=== PATIENT | male | born 1980 | race Caucasian/White ===

== ENCOUNTER 2019-05-14 19:37 | Inpatient (IN) ==
[2019-05-14] MEDS ORDERED: diazePAM 10 MG/2 ML SYRINGE IVP STA (19:43)
[2019-05-14] MEDS ORDERED: Pantoprazole 40 MG VIAL IVP ONE (19:44)
[2019-05-14] MEDS ORDERED: 0.9 % Sodium Chloride 1,000 ML IVC ONE (19:44)
[2019-05-14 20:26] LABS: Basophils % 0.2 %; Eosinophils % 0.5 %; Hematocrit 43.1 % (37.5-50.1); Hemoglobin 14.7 g/dL (12.9-16.9); Immature Granulocytes % 0.5 % (0-4); Lymphocytes # 1.5 K/mcL (0.6-4.6); Lymphocytes % 34.8 %; Mean Corpuscular HGB Conc 34.1 g/dL (31.6-35.5); Mean Corpuscular Hemoglobin 31.3 pg (28.0-33.3); Mean Corpuscular Volume 91.7 fL (83.0-100.0); Mean Platelet Volume 9.3 fL (9.4-12.4); Monocytes # 0.4 K/mcL (0.0-1.3); Monocytes % 8.4 %; Neutrophils # 2.5 K/mcL (1.6-8.9); Platelet Count 158 K/mcL (140-400); Segmented Neutrophils % 55.6 %; White Blood Count 4.4 K/mcL (4.3-11.1)
[2019-05-14] MEDS ORDERED: Naloxone 0.4 MG/ML INJ IVP PRN (21:03)
[2019-05-14] MEDS ORDERED: Ondansetron 4 MG/2 ML VIAL IVP PRN (21:03)
[2019-05-14] MEDS ORDERED: *HR* LORazepam 2 MG/ML VIAL IVP PRN (21:35)
[2019-05-14] MEDS ORDERED: Thiamine (B-1) 100 MG, Folic Acid 1 MG, MVI, adult with vitamin K 10 ML in 0.9 % Sodi... IVPB SCH (21:36)
[2019-05-14] MEDS: *HR* LORazepam 2 MG/ML VIAL IVP PRN ×2 (22:03→23:08)
[2019-05-15 02:09] LABS: Basophils % 0.7 %; Eosinophils % 0.7 %; Hematocrit 40.9 % (37.5-50.1); Hemoglobin 14.2 g/dL (12.9-16.9); Immature Granulocytes % 0.5 % (0-4); Immature Platelets 2.1 % (1.1-6.1); Lymphocytes # 1.6 K/mcL (0.6-4.6); Lymphocytes % 37.9 %; Mean Corpuscular HGB Conc 34.7 g/dL (31.6-35.5); Mean Corpuscular Volume 92.1 fL (83.0-100.0); Mean Platelet Volume 9.5 fL (9.4-12.4); Monocytes # 0.3 K/mcL (0.0-1.3); Monocytes % 8.3 %; Neutrophils # 2.1 K/mcL (1.6-8.9); Platelet Count 151 K/mcL (140-400); Red Blood Count 4.44 M/mcL (4.19-5.50); Red Cell Distribution Width 15.1 % (11.5-14.5); Segmented Neutrophils % 51.9 %; White Blood Count 4.1 K/mcL (4.3-11.1)
[2019-05-15] MEDS: *HR* LORazepam 2 MG/ML VIAL IVP PRN ×8 (02:13→21:40)
[2019-05-15 03:58] LABS: BUN/Creatinine Ratio 9 (6-26); Blood Urea Nitrogen 10 mg/dL (6-20); Carbon Dioxide 22 mEq/L (23-29); Chloride 106 mEq/L (98-107); Glucose 97 mg/dL (70-105); Magnesium 1.8 mg/dL (1.6-2.6); Osmolality,Calculated 287 (280-300); Potassium 3.6 mEq/L (3.5-5.1); Sodium 139 mEq/L (136-145); eGFR For African Americans > 60 (> 60); eGFR For Non-African Americans > 60 (> 60)
[2019-05-15] MEDS: Pantoprazole 40 MG VIAL IVP SCH ×2 (06:10→17:16)
[2019-05-15 07:19] LABS: Hematocrit 42.4 % (37.5-50.1); Hemoglobin 14.4 g/dL (12.9-16.9)
[2019-05-15] MEDS: *HR* LORazepam 0.5 MG TABLET PO SCH ×4 (07:31→20:04)
[2019-05-15] MEDS: Folic Acid 1 MG TABLET PO SCH (07:32)
[2019-05-15] MEDS: Vitamin B Complex/Vit C/Vit E 1 EACH TABLET PO SCH (07:32)
[2019-05-15] MEDS: Thiamine (B-1) 100 MG TABLET PO SCH (07:32)
[2019-05-15] MEDS ORDERED: Celecoxib 200 MG CAPSULE PO SCH (09:00)
[2019-05-15] MEDS ORDERED: 0.9 % Sodium Chloride 1,000 ML IVC SCH (10:30)
[2019-05-15 16:35] LABS: Albumin/Globulin Ratio 1.5 (1.1-2.2); Bilirubin,Direct 0.3 mg/dL (0.0-0.2); Bilirubin,Indirect 0.9 mg/dL (0.0-1.0); Bilirubin,Total 1.2 mg/dL (0.3-1.0); Globulin 2.6 g/dL (2.4-3.5); Total Protein 6.6 g/dL (6.4-8.9)
[2019-05-15] MEDS ORDERED: *HR* Metoprolol 5 MG/5 ML VIAL IVP ONE (22:08)
[2019-05-16] MEDS: Acetaminophen 325 MG TABLET PO PRN
[2019-05-16] MEDS: *HR* LORazepam 2 MG/ML VIAL IVP PRN ×6 (00:01→22:18)
[2019-05-16] MEDS: 0.9 % Sodium Chloride 1,000 ML IVC SCH ×3 (01:08→16:32)
[2019-05-16 05:11] LABS: Basophils % 0.5 %; Eosinophils # 0.1 K/mcL (0.0-0.6); Eosinophils % 1.4 %; Hematocrit 41.9 % (37.5-50.1); Hemoglobin 14.3 g/dL (12.9-16.9); Immature Granulocytes % 0.2 % (0-4); Lymphocytes # 1.4 K/mcL (0.6-4.6); Lymphocytes % 31.8 %; Mean Corpuscular HGB Conc 34.1 g/dL (31.6-35.5); Mean Corpuscular Hemoglobin 32.1 pg (28.0-33.3); Mean Corpuscular Volume 93.9 fL (83.0-100.0); Mean Platelet Volume 9.4 fL (9.4-12.4); Monocytes # 0.4 K/mcL (0.0-1.3); Monocytes % 8.5 %; Neutrophils # 2.5 K/mcL (1.6-8.9); Platelet Count 129 K/mcL (140-400); Red Blood Count 4.46 M/mcL (4.19-5.50); Red Cell Distribution Width 15.2 % (11.5-14.5); Segmented Neutrophils % 57.6 %; White Blood Count 4.3 K/mcL (4.3-11.1)
[2019-05-16 05:30] LABS: BUN/Creatinine Ratio 10 (6-26); Blood Urea Nitrogen 11 mg/dL (6-20); Calcium 8.1 mg/dL (8.6-10.3); Carbon Dioxide 23 mEq/L (23-29); Chloride 108 mEq/L (98-107); Glucose 102 mg/dL (70-105); Osmolality,Calculated 286 (280-300); Potassium 3.3 mEq/L (3.5-5.1); Sodium 138 mEq/L (136-145); eGFR For African Americans > 60 (> 60); eGFR For Non-African Americans > 60 (> 60)
[2019-05-16] MEDS: Pantoprazole 40 MG VIAL IVP SCH (06:12)
[2019-05-16] MEDS: *HR* LORazepam 0.5 MG TABLET PO SCH ×2 (07:52→11:26)
[2019-05-16] MEDS: Vitamin B Complex/Vit C/Vit E 1 EACH TABLET PO SCH (07:52)
[2019-05-16] MEDS: Folic Acid 1 MG TABLET PO SCH (07:52)
[2019-05-16] MEDS: Thiamine (B-1) 100 MG TABLET PO SCH (07:52)
[2019-05-16] MEDS: lisinopriL 20 MG TABLET PO SCH (07:53)
[2019-05-16] MEDS: Cholecalciferol (D-3) 1,000 UNIT (25MCG) TABLET PO SCH (08:43)
[2019-05-16] MEDS: cloNIDine HCL 0.1 MG TABLET PO SCH (08:43)
[2019-05-16] MEDS: hydrOXYzine pamoate 25 MG CAPSULE PO PRN ×2 (09:06→14:00)
[2019-05-16] MEDS: traZODone 50 MG TABLET PO SCH (22:20)
[2019-05-17 06:59] LABS: Hematocrit 42.7 % (37.5-50.1); Hemoglobin 14.4 g/dL (12.9-16.9)
[2019-05-17 07:07] LABS: BUN/Creatinine Ratio 13 (6-26); Blood Urea Nitrogen 13 mg/dL (6-20); Calcium 8.2 mg/dL (8.6-10.3); Carbon Dioxide 20 mEq/L (23-29); Chloride 107 mEq/L (98-107); Glucose 88 mg/dL (70-105); Osmolality,Calculated 290 (280-300); Potassium 3.4 mEq/L (3.5-5.1); Sodium 140 mEq/L (136-145); eGFR For African Americans > 60 (> 60); eGFR For Non-African Americans > 60 (> 60)
[2019-05-17] MEDS: Thiamine (B-1) 100 MG TABLET PO SCH (08:24)
[2019-05-17] MEDS: Cholecalciferol (D-3) 1,000 UNIT (25MCG) TABLET PO SCH (08:24)
[2019-05-17] MEDS: lisinopriL 20 MG TABLET PO SCH (08:24)
[2019-05-17] MEDS: Folic Acid 1 MG TABLET PO SCH (08:24)
[2019-05-17] MEDS: Vitamin B Complex/Vit C/Vit E 1 EACH TABLET PO SCH (08:24)
[2019-05-17] MEDS: cloNIDine HCL 0.1 MG TABLET PO SCH (08:24)
[2019-05-17] MEDS: *HR* LORazepam 2 MG/ML VIAL IVP PRN ×3 (08:25→21:56)
[2019-05-17] MEDS: 0.9 % Sodium Chloride 1,000 ML IVC SCH (14:17)
[2019-05-17] MEDS: traZODone 50 MG TABLET PO SCH (21:29)
[2019-05-18 05:02] LABS: BUN/Creatinine Ratio 16 (6-26); Blood Urea Nitrogen 16 mg/dL (6-20); Calcium 8.4 mg/dL (8.6-10.3); Carbon Dioxide 22 mEq/L (23-29); Chloride 108 mEq/L (98-107); Glucose 100 mg/dL (70-105); Osmolality,Calculated 285 (280-300); Potassium 3.7 mEq/L (3.5-5.1); Sodium 137 mEq/L (136-145); eGFR For African Americans > 60 (> 60); eGFR For Non-African Americans > 60 (> 60)
[2019-05-18] MEDS: *HR* LORazepam 2 MG/ML VIAL IVP PRN ×2 (05:13→20:48)
[2019-05-18] MEDS: Cholecalciferol (D-3) 1,000 UNIT (25MCG) TABLET PO SCH (09:35)
[2019-05-18] MEDS: Folic Acid 1 MG TABLET PO SCH (09:35)
[2019-05-18] MEDS: cloNIDine HCL 0.1 MG TABLET PO SCH (09:35)
[2019-05-18] MEDS: lisinopriL 20 MG TABLET PO SCH (09:35)
[2019-05-18] MEDS: Vitamin B Complex/Vit C/Vit E 1 EACH TABLET PO SCH (09:35)
[2019-05-18] MEDS: Thiamine (B-1) 100 MG TABLET PO SCH (09:35)
[2019-05-18] MEDS: traZODone 50 MG TABLET PO SCH (20:47)
[2019-05-19] MEDS: hydrOXYzine pamoate 25 MG CAPSULE PO PRN (06:25)
[2019-05-19] MEDS: cloNIDine HCL 0.1 MG TABLET PO SCH (08:53)
[2019-05-19] MEDS: Folic Acid 1 MG TABLET PO SCH (08:53)
[2019-05-19] MEDS: lisinopriL 20 MG TABLET PO SCH (08:53)
[2019-05-19] MEDS: Thiamine (B-1) 100 MG TABLET PO SCH (08:53)
[2019-05-19] MEDS: Vitamin B Complex/Vit C/Vit E 1 EACH TABLET PO SCH (08:53)
[2019-05-19] MEDS: Cholecalciferol (D-3) 1,000 UNIT (25MCG) TABLET PO SCH (08:54)
[2019-05-19] MEDS: *HR* LORazepam 2 MG/ML VIAL IVP PRN ×5 (09:02→20:55)
[2019-05-19] MEDS: Acetaminophen 325 MG TABLET PO PRN (10:17)
[2019-05-19] MEDS: traZODone 50 MG TABLET PO SCH (20:55)
[2019-05-20] MEDS: Thiamine (B-1) 100 MG TABLET PO SCH (10:22)
[2019-05-20] MEDS: cloNIDine HCL 0.1 MG TABLET PO SCH (10:24)
[2019-05-20] MEDS: Folic Acid 1 MG TABLET PO SCH (10:24)
[2019-05-20] MEDS: lisinopriL 20 MG TABLET PO SCH (10:24)
[2019-05-20] MEDS: Vitamin B Complex/Vit C/Vit E 1 EACH TABLET PO SCH (10:24)
[2019-05-20] MEDS: Cholecalciferol (D-3) 1,000 UNIT (25MCG) TABLET PO SCH (10:24)
[2019-05-20] MEDS: *HR* LORazepam 2 MG/ML VIAL IVP PRN ×3 (10:35→20:48)
[2019-05-20] MEDS: traZODone 50 MG TABLET PO SCH (20:47)
[2019-05-21 04:19] LABS: Hematocrit 43.3 % (37.5-50.1); Hemoglobin 14.1 g/dL (12.9-16.9)
[2019-05-21 04:35] LABS: BUN/Creatinine Ratio 17 (6-26); Blood Urea Nitrogen 17 mg/dL (6-20); Calcium 8.4 mg/dL (8.6-10.3); Carbon Dioxide 26 mEq/L (23-29); Chloride 107 mEq/L (98-107); Glucose 102 mg/dL (70-105); Osmolality,Calculated 290 (280-300); Potassium 3.4 mEq/L (3.5-5.1); Sodium 139 mEq/L (136-145); eGFR For African Americans > 60 (> 60); eGFR For Non-African Americans > 60 (> 60)
[2019-05-21] MEDS: Thiamine (B-1) 100 MG TABLET PO SCH (08:20)
[2019-05-21] MEDS: lisinopriL 20 MG TABLET PO SCH (08:20)
[2019-05-21] MEDS: cloNIDine HCL 0.1 MG TABLET PO SCH (08:20)
[2019-05-21] MEDS: Vitamin B Complex/Vit C/Vit E 1 EACH TABLET PO SCH (08:20)
[2019-05-21] MEDS: Folic Acid 1 MG TABLET PO SCH (08:21)
[2019-05-21] MEDS: Cholecalciferol (D-3) 1,000 UNIT (25MCG) TABLET PO SCH (08:21)
[2019-05-21] MEDS: *HR* LORazepam 2 MG/ML VIAL IVP PRN ×3 (12:50→22:35)
[2019-05-21] MEDS ORDERED: Nicotine 2 MG GUM BC PRN (14:02)
[2019-05-21] MEDS: Acetaminophen 325 MG TABLET PO PRN (16:14)
[2019-05-21] MEDS: traZODone 50 MG TABLET PO SCH (21:54)
[2019-05-22 07:02] VITALS: BP 122/79
[2019-05-22] MEDS: lisinopriL 20 MG TABLET PO SCH (09:53)
[2019-05-22] MEDS: Vitamin B Complex/Vit C/Vit E 1 EACH TABLET PO SCH (09:53)
[2019-05-22] MEDS: cloNIDine HCL 0.1 MG TABLET PO SCH (09:53)
[2019-05-22] MEDS: Folic Acid 1 MG TABLET PO SCH (09:53)
[2019-05-22] MEDS: Cholecalciferol (D-3) 1,000 UNIT (25MCG) TABLET PO SCH (09:53)
[2019-05-22] MEDS: Thiamine (B-1) 100 MG TABLET PO SCH (09:53)
== END 2019-05-22 14:06 | disposition home or self-care (01) | DRG 378 ==
LOC: EMEROOARM 19:37 → 3ANU 19:37 → SUATTDRO 20:31 → 3ANU 20:57
PROVIDERS: ADMIT Pharmacist; ATTEND Family Medicine
PROC: ENDOEBX (2019-05-15 13:30)

== ENCOUNTER 2019-09-26 21:25 | Inpatient (IN) ==
[2019-09-26] MEDS ORDERED: Isovue-370 500 ML BOTTLE IVP ONE (21:45)
[2019-09-26] MEDS ORDERED: 0.9 % Sodium Chloride 1,000 ML IV ONE (21:49)
[2019-09-26 21:59] LABS: Hematocrit 46.2 % (37.5-50.1); Hemoglobin 15.7 g/dL (12.9-16.9); Mean Corpuscular Hemoglobin 32.6 pg (28.0-33.3); Mean Corpuscular Volume 95.9 fL (83.0-100.0); Mean Platelet Volume 9.5 fL (9.4-12.4); Platelet Count 169 K/mcL (140-400); Red Blood Count 4.82 M/mcL (4.19-5.50); Red Cell Distribution Width 16.3 % (11.5-14.5); White Blood Count 4.2 K/mcL (4.3-11.1)
[2019-09-26 22:01] LABS: Prothrombin Time 11.1 Seconds (9.4-12.1)
[2019-09-26 22:03] LABS: Activated Partial Thrombo Time 34.5 Seconds (26.0-36.0)
[2019-09-26] MEDS ORDERED: *HR* LORazepam 2 MG/ML VIAL IVP ONE (22:12)
[2019-09-26] MEDS ORDERED: Pantoprazole 40 MG VIAL IVP ONE (22:13)
[2019-09-26 22:14] LABS: Alanine Aminotransferase 226 Units/L (7-52); Albumin 4.5 g/dL (3.5-5.7); Albumin/Globulin Ratio 1.7 (1.1-2.2); Alkaline Phosphatase 122 Units/L (34-104); Aspartate Amino Transferase 257 Units/L (13-39); BUN/Creatinine Ratio 5 (6-26); Bilirubin,Direct 0.8 mg/dL (0.0-0.2); Bilirubin,Indirect 0.9 mg/dL (0.0-1.0); Bilirubin,Total 1.7 mg/dL (0.3-1.0); Blood Urea Nitrogen 4 mg/dL (6-20); Calcium 8.6 mg/dL (8.6-10.3); Carbon Dioxide 22 mEq/L (23-29); Chloride 92 mEq/L (98-107); Ethanol 374 mg/dL (Less than 10); Globulin 2.7 g/dL (2.4-3.5); Glucose 97 mg/dL (70-105); Lipase 80 Units/L (11-82); Osmolality,Calculated 275 (280-300); Potassium 3.6 mEq/L (3.5-5.1); Sodium 134 mEq/L (136-145); Total Protein 7.2 g/dL (6.4-8.9); eGFR For African Americans > 60 (> 60); eGFR For Non-African Americans > 60 (> 60)
[2019-09-26 22:15] LABS: Troponin I < 0.03 ng/mL (< 0.04)
[2019-09-27] MEDS ORDERED: *HR* LORazepam 2 MG/ML VIAL IVP ONE (00:03)
[2019-09-27] MEDS ORDERED: *HR* LORazepam 2 MG/ML VIAL IVP PRN ×2 (02:52)
[2019-09-27] MEDS ORDERED: Naloxone 0.4 MG/ML INJ IVP PRN (04:52)
[2019-09-27] MEDS ORDERED: Perflutren Lipid Microsphere 1.3 ML in 0.9 % Sodium Chloride 8.7 ML IVP PRN (04:52)
[2019-09-27] MEDS: Thiamine (B-1) 100 MG, Folic Acid 1 MG, MVI, adult with vitamin K 10 ML in 0.9 % Sodi... IVPB SCH (04:56)
[2019-09-27] MEDS: *HR* LORazepam 2 MG/ML VIAL IVP PRN ×4 (05:39→21:22)
[2019-09-27] MEDS: Pantoprazole 40 MG VIAL IVP SCH ×2 (05:39→18:54)
[2019-09-27 06:02] LABS: Basophils % 0.6 %; Hematocrit 44.4 % (37.5-50.1); Hemoglobin 15.2 g/dL (12.9-16.9); Immature Granulocytes % 0.6 % (0-4); Mean Corpuscular HGB Conc 34.2 g/dL (31.6-35.5); Mean Corpuscular Volume 96.5 fL (83.0-100.0); Mean Platelet Volume 9.5 fL (9.4-12.4); Monocytes # 0.3 K/mcL (0.0-1.3); Monocytes % 9.3 %; Platelet Count 144 K/mcL (140-400); Red Cell Distribution Width 16.4 % (11.5-14.5); Segmented Neutrophils % 58.5 %; White Blood Count 3.4 K/mcL (4.3-11.1)
[2019-09-27 06:18] LABS: Alanine Aminotransferase 196 Units/L (7-52); Albumin 4.4 g/dL (3.5-5.7); Albumin/Globulin Ratio 1.9 (1.1-2.2); Alkaline Phosphatase 116 Units/L (34-104); Aspartate Amino Transferase 194 Units/L (13-39); BUN/Creatinine Ratio 5 (6-26); Bilirubin,Total 1.5 mg/dL (0.3-1.0); Blood Urea Nitrogen 4 mg/dL (6-20); Calcium 8.6 mg/dL (8.6-10.3); Carbon Dioxide 23 mEq/L (23-29); Chloride 95 mEq/L (98-107); Chol/HDL Ratio 2.3 (0-4.9); Cholesterol 310 mg/dL (< 200); Globulin 2.3 g/dL (2.4-3.5); Glucose 67 mg/dL (70-105); HDL Cholesterol 133 mg/dL (40-59); LDL Cholesterol,Calculated 163 mg/dL (< 100); Osmolality,Calculated 277 (280-300); Potassium 3.9 mEq/L (3.5-5.1); Sodium 136 mEq/L (136-145); Total Protein 6.7 g/dL (6.4-8.9); Triglycerides 69 mg/dL (< 150); eGFR For African Americans > 60 (> 60); eGFR For Non-African Americans > 60 (> 60)
[2019-09-27] MEDS ORDERED: NON-FORMULARY MEDICATION 1 EACH EACH (Omeprazole 40 MG) PO SCH (09:00)
[2019-09-27] MEDS: Cholecalciferol (D-3) 1,000 UNIT (25MCG) TABLET PO SCH (09:06)
[2019-09-27] MEDS: lisinopriL 20 MG TABLET PO SCH (09:06)
[2019-09-27] MEDS: FLUoxetine 20 MG CAPSULE PO SCH (09:06)
[2019-09-27 11:28] LABS: Estimated Average Glucose 100 mg/dl
[2019-09-27] MEDS: Ondansetron ODT 4 MG TAB.RAPDIS SL PRN (16:30)
[2019-09-27] MEDS: *HR* Heparin 5,000 UNIT/ML VIAL SQ SCH (18:54)
[2019-09-27] MEDS: traZODone 50 MG TABLET PO SCH (21:22)
[2019-09-28] MEDS: *HR* LORazepam 2 MG/ML VIAL IVP PRN ×5 (01:33→20:38)
[2019-09-28] MEDS: *HR* Heparin 5,000 UNIT/ML VIAL SQ SCH ×2 (05:10→16:30)
[2019-09-28] MEDS: Pantoprazole 40 MG VIAL IVP SCH ×2 (05:26→16:30)
[2019-09-28 05:39] LABS: Hematocrit 42.4 % (37.5-50.1); Hemoglobin 14.3 g/dL (12.9-16.9); Mean Corpuscular HGB Conc 33.7 g/dL (31.6-35.5); Mean Corpuscular Hemoglobin 33.3 pg (28.0-33.3); Mean Corpuscular Volume 98.8 fL (83.0-100.0); Mean Platelet Volume 10.7 fL (9.4-12.4); Red Blood Count 4.29 M/mcL (4.19-5.50); Red Cell Distribution Width 16.2 % (11.5-14.5); White Blood Count 3.1 K/mcL (4.3-11.1)
[2019-09-28 05:45] LABS: Platelet Count 95 K/mcL (140-400)
[2019-09-28 05:54] LABS: Alanine Aminotransferase 233 Units/L (7-52); Albumin 3.9 g/dL (3.5-5.7); Albumin/Globulin Ratio 1.9 (1.1-2.2); Alkaline Phosphatase 97 Units/L (34-104); Aspartate Amino Transferase 317 Units/L (13-39); BUN/Creatinine Ratio 17 (6-26); Bilirubin,Total 2.3 mg/dL (0.3-1.0); Blood Urea Nitrogen 16 mg/dL (6-20); Calcium 8.7 mg/dL (8.6-10.3); Carbon Dioxide 25 mEq/L (23-29); Chloride 98 mEq/L (98-107); Globulin 2.1 g/dL (2.4-3.5); Glucose 119 mg/dL (70-105); Osmolality,Calculated 280 (280-300); Potassium 3.6 mEq/L (3.5-5.1); Sodium 134 mEq/L (136-145); eGFR For African Americans > 60 (> 60); eGFR For Non-African Americans > 60 (> 60)
[2019-09-28] MEDS: FLUoxetine 20 MG CAPSULE PO SCH (08:46)
[2019-09-28] MEDS: lisinopriL 20 MG TABLET PO SCH (08:46)
[2019-09-28] MEDS: Cholecalciferol (D-3) 1,000 UNIT (25MCG) TABLET PO SCH (08:46)
[2019-09-28] MEDS: Thiamine (B-1) 100 MG, Folic Acid 1 MG, MVI, adult with vitamin K 10 ML in 0.9 % Sodi... IVPB SCH (16:31)
[2019-09-28] MEDS: traZODone 50 MG TABLET PO SCH (20:37)
[2019-09-28] MEDS: Ondansetron ODT 4 MG TAB.RAPDIS SL PRN (21:02)
[2019-09-29] MEDS: *HR* LORazepam 2 MG/ML VIAL IVP PRN ×2 (00:43→04:37)
[2019-09-29] MEDS: Pantoprazole 40 MG VIAL IVP SCH (04:35)
[2019-09-29] MEDS: *HR* Heparin 5,000 UNIT/ML VIAL SQ SCH (04:45)
[2019-09-29 06:37] VITALS: BP 101/68
[2019-09-29 07:41] LABS: Hematocrit 41.1 % (37.5-50.1); Hemoglobin 13.9 g/dL (12.9-16.9); Mean Corpuscular HGB Conc 33.8 g/dL (31.6-35.5); Mean Corpuscular Hemoglobin 32.7 pg (28.0-33.3); Mean Corpuscular Volume 96.7 fL (83.0-100.0); Mean Platelet Volume 10.2 fL (9.4-12.4); Platelet Count 102 K/mcL (140-400); Red Blood Count 4.25 M/mcL (4.19-5.50); Red Cell Distribution Width 15.8 % (11.5-14.5); White Blood Count 2.2 K/mcL (4.3-11.1)
[2019-09-29 07:47] LABS: Alanine Aminotransferase 338 Units/L (7-52); Albumin 3.8 g/dL (3.5-5.7); Albumin/Globulin Ratio 1.9 (1.1-2.2); Alkaline Phosphatase 98 Units/L (34-104); Aspartate Amino Transferase 391 Units/L (13-39); BUN/Creatinine Ratio 12 (6-26); Bilirubin,Total 3.2 mg/dL (0.3-1.0); Blood Urea Nitrogen 12 mg/dL (6-20); Carbon Dioxide 24 mEq/L (23-29); Chloride 100 mEq/L (98-107); Glucose 144 mg/dL (70-105); Osmolality,Calculated 280 (280-300); Potassium 3.4 mEq/L (3.5-5.1); Sodium 134 mEq/L (136-145); Total Protein 5.8 g/dL (6.4-8.9); eGFR For African Americans > 60 (> 60); eGFR For Non-African Americans > 60 (> 60)
[2019-09-29] MEDS: FLUoxetine 20 MG CAPSULE PO SCH (08:28)
[2019-09-29] MEDS: Cholecalciferol (D-3) 1,000 UNIT (25MCG) TABLET PO SCH (08:28)
[2019-09-29] MEDS: lisinopriL 20 MG TABLET PO SCH (08:28)
== END 2019-09-29 09:46 | disposition home or self-care (01) | DRG 897 ==
LOC: EMEROOARM 21:25 → 3BNU 21:25
PROVIDERS: ADMIT Family Medicine; ATTEND Family Medicine

== ENCOUNTER 2019-11-01 20:49 | Inpatient (IN) ==
[2019-11-01] MEDS ORDERED: Aspirin 81 MG TAB.CHEW PO STA (21:35)
[2019-11-01] MEDS ORDERED: Nitroglycerin 0.4 MG TAB.SUBL SL PRN (21:36)
[2019-11-01 21:58] LABS: Basophils % 0.8 %; Hematocrit 41.6 % (37.5-50.1); Hemoglobin 14.5 g/dL (12.9-16.9); Immature Granulocytes % 0.5 % (0-4); Lymphocytes # 0.7 K/mcL (0.6-4.6); Lymphocytes % 20.3 %; Mean Corpuscular HGB Conc 34.9 g/dL (31.6-35.5); Mean Corpuscular Hemoglobin 34.4 pg (28.0-33.3); Mean Corpuscular Volume 98.8 fL (83.0-100.0); Mean Platelet Volume 10.2 fL (9.4-12.4); Monocytes # 0.4 K/mcL (0.0-1.3); Monocytes % 9.9 %; Neutrophils # 2.5 K/mcL (1.6-8.9); Platelet Count 138 K/mcL (140-400); Red Blood Count 4.21 M/mcL (4.19-5.50); Red Cell Distribution Width 14.6 % (11.5-14.5); Segmented Neutrophils % 68.5 %; White Blood Count 3.6 K/mcL (4.3-11.1)
[2019-11-01] MEDS: *HR* LORazepam 2 MG/ML VIAL IVP PRN ×2 (21:58→23:57)
[2019-11-01 22:42] LABS: Alanine Aminotransferase 167 Units/L (7-52); Albumin 4.1 g/dL (3.5-5.7); Albumin/Globulin Ratio 1.6 (1.1-2.2); Alkaline Phosphatase 233 Units/L (34-104); Aspartate Amino Transferase 262 Units/L (13-39); BUN/Creatinine Ratio 4 (6-26); Bilirubin,Direct 3.1 mg/dL (0.0-0.2); Bilirubin,Indirect 2.2 mg/dL (0.0-1.0); Bilirubin,Total 5.3 mg/dL (0.3-1.0); Blood Urea Nitrogen 3 mg/dL (6-20); Calcium 9.2 mg/dL (8.6-10.3); Carbon Dioxide 20 mEq/L (23-29); Chloride 92 mEq/L (98-107); Globulin 2.6 g/dL (2.4-3.5); Glucose 101 mg/dL (70-105); Osmolality,Calculated 267 (280-300); Potassium 3.4 mEq/L (3.5-5.1); Sodium 130 mEq/L (136-145); Total Protein 6.7 g/dL (6.4-8.9); eGFR For African Americans > 60 (> 60); eGFR For Non-African Americans > 60 (> 60)
[2019-11-01 22:52] LABS: Troponin I < 0.03 ng/mL (< 0.04)
[2019-11-01] MEDS: Vitamin B Complex/Vit C/Vit E 1 EACH TABLET PO SCH (23:51)
[2019-11-01] MEDS: Folic Acid 1 MG TABLET PO SCH (23:52)
[2019-11-01] MEDS: Thiamine (B-1) 100 MG TABLET PO SCH (23:52)
[2019-11-02] MEDS ORDERED: 0.9 % Sodium Chloride 1,000 ML IVC SCH (00:15)
[2019-11-02] MEDS: *HR* LORazepam 2 MG/ML VIAL IVP PRN ×5 (01:26→23:53)
[2019-11-02] MEDS ORDERED: *HR* Labetalol 20 MG/4 ML SYRINGE IVP ONE (02:22)
[2019-11-02] MEDS: Dexmedetomidine HCl 400 MCG/100 ML MLS IVC SCH ×2 (03:15→08:09)
[2019-11-02 05:26] LABS: Hematocrit 41.7 % (37.5-50.1); Hemoglobin 14.2 g/dL (12.9-16.9); Mean Corpuscular HGB Conc 34.1 g/dL (31.6-35.5); Mean Corpuscular Hemoglobin 34.3 pg (28.0-33.3); Mean Corpuscular Volume 100.7 fL (83.0-100.0); Mean Platelet Volume 10.8 fL (9.4-12.4); Platelet Count 146 K/mcL (140-400); Red Blood Count 4.14 M/mcL (4.19-5.50); Red Cell Distribution Width 14.6 % (11.5-14.5); White Blood Count 3.6 K/mcL (4.3-11.1)
[2019-11-02 05:32] LABS: INR 1.1; Prothrombin Time 12.4 Seconds (9.4-12.1)
[2019-11-02 05:48] LABS: Alanine Aminotransferase 154 Units/L (7-52); Albumin/Globulin Ratio 1.6 (1.1-2.2); Alkaline Phosphatase 235 Units/L (34-104); Aspartate Amino Transferase 237 Units/L (13-39); BUN/Creatinine Ratio 7 (6-26); Bilirubin,Total 5.9 mg/dL (0.3-1.0); Blood Urea Nitrogen 7 mg/dL (6-20); Calcium 9.6 mg/dL (8.6-10.3); Carbon Dioxide 25 mEq/L (23-29); Chloride 92 mEq/L (98-107); Globulin 2.5 g/dL (2.4-3.5); Glucose 119 mg/dL (70-105); Osmolality,Calculated 269 (280-300); Potassium 3.6 mEq/L (3.5-5.1); Sodium 130 mEq/L (136-145); Total Protein 6.5 g/dL (6.4-8.9); eGFR For African Americans > 60 (> 60); eGFR For Non-African Americans > 60 (> 60)
[2019-11-02] MEDS: Thiamine (B-1) 100 MG TABLET PO SCH (08:14)
[2019-11-02] MEDS: Folic Acid 1 MG TABLET PO SCH (08:14)
[2019-11-02] MEDS: Vitamin B Complex/Vit C/Vit E 1 EACH TABLET PO SCH (08:14)
[2019-11-02 09:07] LABS: BUN/Creatinine Ratio 7 (6-26); Blood Urea Nitrogen 8 mg/dL (6-20); Calcium 9.5 mg/dL (8.6-10.3); Carbon Dioxide 25 mEq/L (23-29); Chloride 93 mEq/L (98-107); Glucose 127 mg/dL (70-105); Osmolality,Calculated 272 (280-300); Potassium 3.3 mEq/L (3.5-5.1); Sodium 131 mEq/L (136-145); eGFR For African Americans > 60 (> 60); eGFR For Non-African Americans > 60 (> 60)
[2019-11-02] MEDS: Thiamine (B-1) 100 MG, Folic Acid 1 MG, MVI, adult with vitamin K 10 ML in 0.9 % Sodi... IVPB SCH (17:45)
[2019-11-02] MEDS: *HR* Heparin 5,000 UNIT/ML VIAL SQ SCH (17:49)
[2019-11-02] MEDS: traZODone 50 MG TABLET PO SCH (19:43)
[2019-11-03 03:25] LABS: Hematocrit 39.4 % (37.5-50.1); Hemoglobin 13.7 g/dL (12.9-16.9); Immature Platelets 6.7 % (1.1-6.1); Mean Corpuscular HGB Conc 34.8 g/dL (31.6-35.5); Mean Corpuscular Hemoglobin 35.4 pg (28.0-33.3); Mean Corpuscular Volume 101.8 fL (83.0-100.0); Mean Platelet Volume 10.7 fL (9.4-12.4); Red Blood Count 3.87 M/mcL (4.19-5.50); Red Cell Distribution Width 14.4 % (11.5-14.5); White Blood Count 3.1 K/mcL (4.3-11.1)
[2019-11-03 03:44] LABS: Alanine Aminotransferase 129 Units/L (7-52); Albumin 3.4 g/dL (3.5-5.7); Albumin/Globulin Ratio 1.5 (1.1-2.2); Alkaline Phosphatase 210 Units/L (34-104); Aspartate Amino Transferase 192 Units/L (13-39); BUN/Creatinine Ratio 12 (6-26); Bilirubin,Total 6.6 mg/dL (0.3-1.0); Blood Urea Nitrogen 11 mg/dL (6-20); Calcium 8.7 mg/dL (8.6-10.3); Carbon Dioxide 25 mEq/L (23-29); Chloride 97 mEq/L (98-107); Globulin 2.2 g/dL (2.4-3.5); Glucose 97 mg/dL (70-105); Osmolality,Calculated 273 (280-300); Potassium 3.4 mEq/L (3.5-5.1); Sodium 132 mEq/L (136-145); Total Protein 5.6 g/dL (6.4-8.9); eGFR For African Americans > 60 (> 60); eGFR For Non-African Americans > 60 (> 60)
[2019-11-03] MEDS: *HR* Heparin 5,000 UNIT/ML VIAL SQ SCH ×2 (04:38→16:47)
[2019-11-03] MEDS: *HR* LORazepam 2 MG/ML VIAL IVP PRN ×5 (06:49→22:41)
[2019-11-03] MEDS: FLUoxetine 20 MG CAPSULE PO SCH (08:29)
[2019-11-03] MEDS: Folic Acid 1 MG TABLET PO SCH (08:29)
[2019-11-03] MEDS: Thiamine (B-1) 100 MG TABLET PO SCH (08:29)
[2019-11-03] MEDS: Vitamin B Complex/Vit C/Vit E 1 EACH TABLET PO SCH (08:29)
[2019-11-03] MEDS: Thiamine (B-1) 100 MG, Folic Acid 1 MG, MVI, adult with vitamin K 10 ML in 0.9 % Sodi... IVPB SCH (16:40)
[2019-11-03] MEDS: traZODone 50 MG TABLET PO SCH (19:54)
[2019-11-04 01:36] LABS: Hematocrit 41.9 % (37.5-50.1); Hemoglobin 13.8 g/dL (12.9-16.9); Mean Corpuscular HGB Conc 32.9 g/dL (31.6-35.5); Mean Corpuscular Volume 103.2 fL (83.0-100.0); Mean Platelet Volume 10.8 fL (9.4-12.4); Platelet Count 146 K/mcL (140-400); Red Blood Count 4.06 M/mcL (4.19-5.50); Red Cell Distribution Width 14.4 % (11.5-14.5); White Blood Count 3.5 K/mcL (4.3-11.1)
[2019-11-04 01:46] LABS: Alanine Aminotransferase 112 Units/L (7-52); Albumin 3.3 g/dL (3.5-5.7); Albumin/Globulin Ratio 1.5 (1.1-2.2); Alkaline Phosphatase 213 Units/L (34-104); Aspartate Amino Transferase 167 Units/L (13-39); BUN/Creatinine Ratio 14 (6-26); Bilirubin,Total 7.3 mg/dL (0.3-1.0); Blood Urea Nitrogen 12 mg/dL (6-20); Calcium 8.7 mg/dL (8.6-10.3); Carbon Dioxide 23 mEq/L (23-29); Chloride 99 mEq/L (98-107); Globulin 2.2 g/dL (2.4-3.5); Glucose 92 mg/dL (70-105); Osmolality,Calculated 275 (280-300); Potassium 3.5 mEq/L (3.5-5.1); Sodium 133 mEq/L (136-145); Total Protein 5.5 g/dL (6.4-8.9); eGFR For African Americans > 60 (> 60); eGFR For Non-African Americans > 60 (> 60)
[2019-11-04] MEDS: *HR* LORazepam 2 MG/ML VIAL IVP PRN ×5 (03:06→20:21)
[2019-11-04] MEDS: *HR* Heparin 5,000 UNIT/ML VIAL SQ SCH ×2 (04:10→17:49)
[2019-11-04] MEDS: Folic Acid 1 MG TABLET PO SCH (07:41)
[2019-11-04] MEDS: Thiamine (B-1) 100 MG TABLET PO SCH (07:41)
[2019-11-04] MEDS: FLUoxetine 20 MG CAPSULE PO SCH (07:41)
[2019-11-04] MEDS: Vitamin B Complex/Vit C/Vit E 1 EACH TABLET PO SCH (07:42)
[2019-11-04] MEDS: Thiamine (B-1) 100 MG, Folic Acid 1 MG, MVI, adult with vitamin K 10 ML in 0.9 % Sodi... IVPB SCH (17:49)
[2019-11-04] MEDS: traZODone 50 MG TABLET PO SCH (20:21)
[2019-11-05] MEDS: *HR* LORazepam 2 MG/ML VIAL IVP PRN ×4 (02:13→15:57)
[2019-11-05 03:56] LABS: Hemoglobin 13.8 g/dL (12.9-16.9); Immature Platelets 6.7 % (1.1-6.1); Mean Corpuscular HGB Conc 32.9 g/dL (31.6-35.5); Mean Corpuscular Hemoglobin 34.3 pg (28.0-33.3); Mean Corpuscular Volume 104.5 fL (83.0-100.0); Mean Platelet Volume 10.4 fL (9.4-12.4); Red Blood Count 4.02 M/mcL (4.19-5.50); Red Cell Distribution Width 14.6 % (11.5-14.5); White Blood Count 3.6 K/mcL (4.3-11.1)
[2019-11-05 04:11] LABS: Alanine Aminotransferase 91 Units/L (7-52); Albumin 3.1 g/dL (3.5-5.7); Albumin/Globulin Ratio 1.6 (1.1-2.2); Alkaline Phosphatase 202 Units/L (34-104); Aspartate Amino Transferase 133 Units/L (13-39); BUN/Creatinine Ratio 19 (6-26); Bilirubin,Total 7.1 mg/dL (0.3-1.0); Blood Urea Nitrogen 15 mg/dL (6-20); Calcium 8.6 mg/dL (8.6-10.3); Carbon Dioxide 23 mEq/L (23-29); Chloride 103 mEq/L (98-107); Globulin 1.9 g/dL (2.4-3.5); Glucose 94 mg/dL (70-105); Osmolality,Calculated 281 (280-300); Potassium 3.5 mEq/L (3.5-5.1); Sodium 135 mEq/L (136-145); eGFR For African Americans > 60 (> 60); eGFR For Non-African Americans > 60 (> 60)
[2019-11-05] MEDS: *HR* Heparin 5,000 UNIT/ML VIAL SQ SCH ×2 (05:38→17:45)
[2019-11-05] MEDS: FLUoxetine 20 MG CAPSULE PO SCH (07:45)
[2019-11-05] MEDS: Folic Acid 1 MG TABLET PO SCH (07:45)
[2019-11-05] MEDS ORDERED: 0.9 % Sodium Chloride 1,000 ML IVC ONE (09:44)
[2019-11-05] MEDS: Thiamine (B-1) 100 MG TABLET PO SCH (10:05)
[2019-11-05] MEDS: traZODone 50 MG TABLET PO SCH (21:19)
[2019-11-06] MEDS: *HR* LORazepam 2 MG/ML VIAL IVP PRN ×2 (05:28→11:35)
[2019-11-06] MEDS: *HR* Heparin 5,000 UNIT/ML VIAL SQ SCH ×2 (05:28→18:31)
[2019-11-06] MEDS: Thiamine (B-1) 100 MG TABLET PO SCH (07:27)
[2019-11-06] MEDS: FLUoxetine 20 MG CAPSULE PO SCH (07:27)
[2019-11-06] MEDS: Folic Acid 1 MG TABLET PO SCH (07:27)
[2019-11-06] MEDS: lisinopriL 20 MG TABLET PO SCH (09:19)
[2019-11-06 10:52] LABS: Alanine Aminotransferase 73 Units/L (7-52); Albumin 3.1 g/dL (3.5-5.7); Albumin/Globulin Ratio 1.3 (1.1-2.2); Alkaline Phosphatase 207 Units/L (34-104); Aspartate Amino Transferase 116 Units/L (13-39); BUN/Creatinine Ratio 17 (6-26); Bilirubin,Total 7.3 mg/dL (0.3-1.0); Blood Urea Nitrogen 14 mg/dL (6-20); Calcium 8.6 mg/dL (8.6-10.3); Carbon Dioxide 25 mEq/L (23-29); Chloride 104 mEq/L (98-107); Globulin 2.3 g/dL (2.4-3.5); Glucose 128 mg/dL (70-105); Hematocrit 43.3 % (37.5-50.1); Hemoglobin 14.4 g/dL (12.9-16.9); Mean Corpuscular HGB Conc 33.3 g/dL (31.6-35.5); Mean Corpuscular Hemoglobin 35.2 pg (28.0-33.3); Mean Corpuscular Volume 105.9 fL (83.0-100.0); Mean Platelet Volume 11.9 fL (9.4-12.4); Osmolality,Calculated 282 (280-300); Platelet Count 171 K/mcL (140-400); Potassium 3.6 mEq/L (3.5-5.1); Red Blood Count 4.09 M/mcL (4.19-5.50); Red Cell Distribution Width 14.7 % (11.5-14.5); Sodium 135 mEq/L (136-145); Total Protein 5.4 g/dL (6.4-8.9); White Blood Count 3.7 K/mcL (4.3-11.1); eGFR For African Americans > 60 (> 60); eGFR For Non-African Americans > 60 (> 60)
[2019-11-06 16:11] LABS: Hepatitis B Surface Antigen Nonreactive (Nonreactive)
[2019-11-06 16:40] LABS: Hepatitis C Virus Antibody Nonreactive (Nonreactive)
[2019-11-06 16:41] LABS: Hepatitis B Core IgM Nonreactive (Nonreactive)
[2019-11-06 16:42] LABS: Hepatitis A Antibody IgM Nonreactive (Nonreactive)
[2019-11-06 16:42] LABS: INR 1.2; Prothrombin Time 13.8 Seconds (9.4-12.1)
[2019-11-06] MEDS: traZODone 50 MG TABLET PO SCH (20:36)
[2019-11-07 03:12] LABS: Hematocrit 40.8 % (37.5-50.1); Hemoglobin 13.5 g/dL (12.9-16.9); Mean Corpuscular HGB Conc 33.1 g/dL (31.6-35.5); Mean Corpuscular Hemoglobin 34.2 pg (28.0-33.3); Mean Corpuscular Volume 103.3 fL (83.0-100.0); Mean Platelet Volume 10.5 fL (9.4-12.4); Platelet Count 167 K/mcL (140-400); Red Blood Count 3.95 M/mcL (4.19-5.50); Red Cell Distribution Width 14.7 % (11.5-14.5); White Blood Count 4.2 K/mcL (4.3-11.1)
[2019-11-07 03:34] LABS: Alanine Aminotransferase 62 Units/L (7-52); Albumin 2.9 g/dL (3.5-5.7); Albumin/Globulin Ratio 1.3 (1.1-2.2); Alkaline Phosphatase 198 Units/L (34-104); Aspartate Amino Transferase 103 Units/L (13-39); BUN/Creatinine Ratio 17 (6-26); Bilirubin,Total 7.7 mg/dL (0.3-1.0); Blood Urea Nitrogen 13 mg/dL (6-20); Calcium 8.6 mg/dL (8.6-10.3); Carbon Dioxide 21 mEq/L (23-29); Chloride 104 mEq/L (98-107); Globulin 2.3 g/dL (2.4-3.5); Glucose 85 mg/dL (70-105); Osmolality,Calculated 279 (280-300); Potassium 3.7 mEq/L (3.5-5.1); Sodium 135 mEq/L (136-145); Total Protein 5.2 g/dL (6.4-8.9); eGFR For African Americans > 60 (> 60); eGFR For Non-African Americans > 60 (> 60)
[2019-11-07] MEDS: *HR* Heparin 5,000 UNIT/ML VIAL SQ SCH (06:21)
[2019-11-07] MEDS: FLUoxetine 20 MG CAPSULE PO SCH (08:54)
[2019-11-07] MEDS: lisinopriL 20 MG TABLET PO SCH (08:54)
[2019-11-07] MEDS: Thiamine (B-1) 100 MG TABLET PO SCH (08:54)
[2019-11-07] MEDS: Folic Acid 1 MG TABLET PO SCH (08:54)
[2019-11-07 10:59] VITALS: BP 145/91
== END 2019-11-07 14:43 | disposition home or self-care (01) | DRG 897 ==
LOC: EMEROOARM 20:49 → 2NNU 20:49 → SUATTDRO 23:52 → 2NNU 11-02 00:30 → 3BNU 11-06 14:41
PROVIDERS: ADMIT Student in an Organized Health Care Education/Training Program; ATTEND Family Medicine

== ENCOUNTER 2020-03-29 18:36 | Inpatient (IN) ==
[2020-03-29] MEDS ORDERED: *HR* LORazepam 2 MG/ML VIAL IVP ONE (19:11)
[2020-03-29] MEDS ORDERED: Thiamine (B-1) 100 MG in 0.9 % Sodium Chloride 50 ML IVPB STA (19:13)
[2020-03-29] MEDS ORDERED: Folic Acid 1 MG in 0.9 % Sodium Chloride 50 ML IVPB STA (19:14)
[2020-03-29 19:58] LABS: Bilirubin,Urine Negative (Negative); Blood,Urine Negative (Negative); Clarity,Urine Clear (Clear); Color,Urine Light-Yellow (Yellow); Glucose,Urine (UA) Normal (Normal); Ketones,Urine Negative (Negative); Leukocyte Esterase,Urine Negative (Negative); Nitrite,Urine Negative (Negative); PH,Urine 6.5 pH Units (5.0-8.0); Protein,Urine Negative (Neg-Trace); Specific Gravity,Urine 1.019 (1.010-1.025); Urobilinogen,Urine Normal (Normal)
[2020-03-29 20:32] LABS: Basophils # 0.1 K/mcL (0.0-0.2); Basophils % 1.3 %; Hematocrit 44.8 % (37.5-50.1); Hemoglobin 14.6 g/dL (12.9-16.9); Immature Granulocytes % 1.2 % (0-4); Lymphocytes # 2.2 K/mcL (0.6-4.6); Lymphocytes % 36.1 %; Mean Corpuscular HGB Conc 32.6 g/dL (31.6-35.5); Mean Corpuscular Hemoglobin 29.7 pg (28.0-33.3); Mean Corpuscular Volume 91.1 fL (83.0-100.0); Mean Platelet Volume 9.8 fL (9.4-12.4); Monocytes # 0.8 K/mcL (0.0-1.3); Monocytes % 13.1 %; Neutrophils # 2.9 K/mcL (1.6-8.9); Platelet Count 232 K/mcL (140-400); Red Blood Count 4.92 M/mcL (4.19-5.50); Red Cell Distribution Width 13.1 % (11.5-14.5); Segmented Neutrophils % 48.3 %
[2020-03-29 20:34] LABS: Estimated Average Glucose 123 mg/dl; Hemoglobin A1C 5.9 %
[2020-03-29 20:40] LABS: Amphetamine Screen,Urine Negative ng/mL (Cutoff=1000); Barbiturate Screen,Urine Negative ng/mL (Cutoff=200); Benzodiazepines Screen,Urine Positive ng/mL (Cutoff=200); Cannabinoid Screen,Urine Negative ng/mL (Cutoff = 50); Cocaine Screen,Urine Negative ng/mL (Cutoff= 300); Opiate Screen,Urine Negative ng/mL (Cutoff=300); Phencyclidine Screen,Urine Negative ng/mL (Cutoff=25)
[2020-03-29] MEDS: *HR* LORazepam 2 MG/ML VIAL IVP PRN ×3 (20:44→23:51)
[2020-03-29 20:45] LABS: Acetaminophen < 10 mcg/mL (10-20); BUN/Creatinine Ratio 10 (6-26); Blood Urea Nitrogen 8 mg/dL (6-20); Calcium 8.4 mg/dL (8.6-10.3); Carbon Dioxide 27 mEq/L (23-29); Chloride 105 mEq/L (98-107); Chol/HDL Ratio 2.9 (0-4.9); Cholesterol 200 mg/dL (< 200); Ethanol 238 mg/dL (Less than 10); Glucose 115 mg/dL (70-105); HDL Cholesterol 68 mg/dL (40-59); LDL Cholesterol,Calculated 104 mg/dL (< 100); Osmolality,Calculated 293 (280-300); Potassium 3.6 mEq/L (3.5-5.1); Salicylate < 2.5 mg/dL (15.0-30.0); Sodium 142 mEq/L (136-145); Triglycerides 141 mg/dL (< 150); eGFR For African Americans > 60 (> 60); eGFR For Non-African Americans > 60 (> 60)
[2020-03-29] MEDS ORDERED: Naloxone 0.4 MG/ML INJ IVP PRN (21:48)
[2020-03-29] MEDS ORDERED: *HR* HYDROcodone/Acet 5/325 mg TABLET PO PRN (21:48)
[2020-03-29] MEDS ORDERED: Acetaminophen 325 MG TABLET PO PRN (21:48)
[2020-03-29 22:49] LABS: Alanine Aminotransferase 58 Units/L (7-52); Albumin 4.2 g/dL (3.5-5.7); Alkaline Phosphatase 74 Units/L (34-104); Aspartate Amino Transferase 40 Units/L (13-39); Bilirubin,Direct 0.1 mg/dL (0.0-0.2); Bilirubin,Indirect 0.2 mg/dL (0.0-1.0); Bilirubin,Total 0.3 mg/dL (0.3-1.0); Globulin 2.1 g/dL (2.4-3.5); Total Protein 6.3 g/dL (6.4-8.9)
[2020-03-29] MEDS: Aspirin Enteric Coated 81 MG Tablet PO SCH (23:51)
[2020-03-30] MEDS: *HR* LORazepam 2 MG/ML VIAL IVP PRN ×4 (03:46→20:24)
[2020-03-30 04:33] LABS: Basophils # 0.1 K/mcL (0.0-0.2); Basophils % 1.3 %; Hematocrit 43.2 % (37.5-50.1); Hemoglobin 14.4 g/dL (12.9-16.9); Immature Granulocytes % 0.8 % (0-4); Lymphocytes # 1.7 K/mcL (0.6-4.6); Lymphocytes % 41.9 %; Mean Corpuscular HGB Conc 33.3 g/dL (31.6-35.5); Mean Corpuscular Hemoglobin 30.6 pg (28.0-33.3); Mean Corpuscular Volume 91.7 fL (83.0-100.0); Mean Platelet Volume 9.7 fL (9.4-12.4); Monocytes # 0.5 K/mcL (0.0-1.3); Monocytes % 12.5 %; Neutrophils # 1.7 K/mcL (1.6-8.9); Platelet Count 178 K/mcL (140-400); Red Blood Count 4.71 M/mcL (4.19-5.50); Red Cell Distribution Width 13.2 % (11.5-14.5); Segmented Neutrophils % 43.5 %
[2020-03-30 04:54] LABS: Alanine Aminotransferase 52 Units/L (7-52); Albumin 3.8 g/dL (3.5-5.7); Albumin/Globulin Ratio 1.9 (1.1-2.2); Alkaline Phosphatase 64 Units/L (34-104); Aspartate Amino Transferase 35 Units/L (13-39); BUN/Creatinine Ratio 11 (6-26); Bilirubin,Total 0.3 mg/dL (0.3-1.0); Blood Urea Nitrogen 8 mg/dL (6-20); Calcium 8.4 mg/dL (8.6-10.3); Carbon Dioxide 26 mEq/L (23-29); Chloride 106 mEq/L (98-107); Glucose 91 mg/dL (70-105); Osmolality,Calculated 292 (280-300); Potassium 3.8 mEq/L (3.5-5.1); Sodium 142 mEq/L (136-145); Total Protein 5.8 g/dL (6.4-8.9); eGFR For African Americans > 60 (> 60); eGFR For Non-African Americans > 60 (> 60)
[2020-03-30] MEDS: Aspirin Enteric Coated 81 MG Tablet PO SCH (09:11)
[2020-03-30] MEDS: Folic Acid 1 MG TABLET PO SCH (09:11)
[2020-03-30] MEDS: Thiamine (B-1) 100 MG in 0.9 % Sodium Chloride 50 ML IVPB SCH (09:23)
[2020-03-30] MEDS: hydrOXYzine pamoate 25 MG CAPSULE PO PRN ×2 (12:38→20:17)
[2020-03-30] MEDS: traZODone 50 MG TABLET PO SCH (20:17)
[2020-03-31] MEDS: hydrOXYzine pamoate 25 MG CAPSULE PO PRN (05:21)
[2020-03-31] MEDS: *HR* LORazepam 2 MG/ML VIAL IVP PRN ×4 (05:21→21:48)
[2020-03-31] MEDS: Folic Acid 1 MG TABLET PO SCH (09:56)
[2020-03-31] MEDS: lisinopriL 20 MG TABLET PO SCH (09:56)
[2020-03-31] MEDS: Aspirin Enteric Coated 81 MG Tablet PO SCH (09:57)
[2020-03-31] MEDS: Thiamine (B-1) 100 MG in 0.9 % Sodium Chloride 50 ML IVPB SCH (12:08)
[2020-03-31] MEDS: *HR* Heparin 5,000 UNIT/ML VIAL SQ SCH (17:17)
[2020-03-31] MEDS: traZODone 50 MG TABLET PO SCH (20:44)
[2020-03-31] MEDS: Nicotine 2 MG GUM BC PRN ×2 (20:52→23:25)
[2020-04-01] MEDS ORDERED: Melatonin 3 MG TABLET PO PRN (00:29)
[2020-04-01] MEDS: *HR* Heparin 5,000 UNIT/ML VIAL SQ SCH (05:38)
[2020-04-01 07:35] VITALS: BP 123/80
[2020-04-01] MEDS: Aspirin Enteric Coated 81 MG Tablet PO SCH (10:07)
[2020-04-01] MEDS: Folic Acid 1 MG TABLET PO SCH (10:07)
[2020-04-01] MEDS: lisinopriL 20 MG TABLET PO SCH (10:08)
[2020-04-01] MEDS: Thiamine (B-1) 100 MG in 0.9 % Sodium Chloride 50 ML IVPB SCH (10:08)
== END 2020-04-01 10:22 | disposition home or self-care (01) | DRG 897 ==
LOC: 2ANU 18:36 → EMEROOARM 18:36 → SUATTDRO 21:32 → 2ANU 22:25
PROVIDERS: ADMIT Family Medicine; ATTEND Internal Medicine

== ENCOUNTER 2021-02-24 14:03 | Inpatient (IN) ==
[2021-02-24] MEDS ORDERED: *HR* LORazepam 2 MG/ML VIAL IVP PRN (14:54)
[2021-02-24] MEDS: *HR* LORazepam 2 MG/ML VIAL IVP PRN ×5 (15:23→21:40)
[2021-02-24 15:34] LABS: Basophils % 0.4 %; Hematocrit 47.8 % (37.5-50.1); Hemoglobin 16.7 g/dL (12.9-16.9); Immature Granulocytes % 0.3 % (0-4); Lymphocytes # 1.3 K/mcL (0.6-4.6); Lymphocytes % 17.8 %; Mean Corpuscular HGB Conc 34.9 g/dL (31.6-35.5); Mean Corpuscular Hemoglobin 32.9 pg (28.0-33.3); Mean Corpuscular Volume 94.3 fL (83.0-100.0); Mean Platelet Volume 9.7 fL (9.4-12.4); Monocytes # 0.6 K/mcL (0.0-1.3); Monocytes % 8.4 %; Neutrophils # 5.2 K/mcL (1.6-8.9); Platelet Count 280 K/mcL (140-400); Red Blood Count 5.07 M/mcL (4.19-5.50); Red Cell Distribution Width 13.4 % (11.5-14.5); Segmented Neutrophils % 73.1 %
[2021-02-24 15:38] LABS: INR 1.1; Prothrombin Time 11.8 Seconds (9.4-12.1)
[2021-02-24 15:40] LABS: Activated Partial Thrombo Time 30.5 Seconds (26.0-36.0)
[2021-02-24 15:46] LABS: Amphetamine Screen,Urine Negative ng/mL (Cutoff=1000); Barbiturate Screen,Urine Negative ng/mL (Cutoff=200); Benzodiazepines Screen,Urine Negative ng/mL (Cutoff=200); Cannabinoid Screen,Urine Positive ng/mL (Cutoff = 50); Cocaine Screen,Urine Negative ng/mL (Cutoff= 300); Opiate Screen,Urine Negative ng/mL (Cutoff=300); Phencyclidine Screen,Urine Negative ng/mL (Cutoff=25)
[2021-02-24 16:00] LABS: Alanine Aminotransferase 95 Units/L (7-52); Albumin 4.4 g/dL (3.5-5.7); Albumin/Globulin Ratio 1.8 (1.1-2.2); Alkaline Phosphatase 90 Units/L (34-104); Aspartate Amino Transferase 39 Units/L (13-39); BUN/Creatinine Ratio 9 (6-26); Bilirubin,Direct 0.3 mg/dL (0.0-0.2); Bilirubin,Indirect 0.7 mg/dL (0.0-1.0); Blood Urea Nitrogen 8 mg/dL (6-20); Calcium 8.6 mg/dL (8.6-10.3); Carbon Dioxide 17 mEq/L (23-29); Chloride 98 mEq/L (98-107); Ethanol 124 mg/dL (Less than 10); Globulin 2.5 g/dL (2.4-3.5); Glucose 79 mg/dL (70-105); Osmolality,Calculated 279 (280-300); Phosphorous 2.1 mg/dL (2.7-4.5); Potassium 3.7 mEq/L (3.5-5.1); Sodium 136 mEq/L (136-145); Total Protein 6.9 g/dL (6.4-8.9); Troponin I < 0.03 ng/mL (< 0.04); eGFR For African Americans > 60 (> 60); eGFR For Non-African Americans > 60 (> 60)
[2021-02-24] MEDS: Vitamin B Complex/Vit C/Vit E 1 EACH TABLET PO SCH (16:24)
[2021-02-24] MEDS: Thiamine (B-1) 100 MG TABLET PO SCH (16:24)
[2021-02-24] MEDS: Folic Acid 1 MG TABLET PO SCH (16:25)
[2021-02-24] MEDS ORDERED: Ondansetron 4 MG/2 ML VIAL IVP PRN (17:59)
[2021-02-24] MEDS ORDERED: Ringers Solution, Lactated 1,000 ML IVC ONE (18:02)
[2021-02-25] MEDS: *HR* LORazepam 2 MG/ML VIAL IVP PRN ×3 (00:27→12:46)
[2021-02-25 04:46] LABS: Hematocrit 43.9 % (37.5-50.1); Hemoglobin 14.7 g/dL (12.9-16.9); Mean Corpuscular HGB Conc 33.5 g/dL (31.6-35.5); Mean Corpuscular Hemoglobin 32.3 pg (28.0-33.3); Mean Corpuscular Volume 96.5 fL (83.0-100.0); Mean Platelet Volume 10.2 fL (9.4-12.4); Platelet Count 182 K/mcL (140-400); Red Blood Count 4.55 M/mcL (4.19-5.50); Red Cell Distribution Width 13.4 % (11.5-14.5); White Blood Count 4.8 K/mcL (4.3-11.1)
[2021-02-25 04:59] LABS: BUN/Creatinine Ratio 14 (6-26); Blood Urea Nitrogen 13 mg/dL (6-20); Calcium 8.7 mg/dL (8.6-10.3); Carbon Dioxide 23 mEq/L (23-29); Chloride 102 mEq/L (98-107); Glucose 68 mg/dL (70-105); Magnesium 2.1 mg/dL (1.6-2.6); Osmolality,Calculated 284 (280-300); Potassium 4.3 mEq/L (3.5-5.1); Sodium 138 mEq/L (136-145); eGFR For African Americans > 60 (> 60); eGFR For Non-African Americans > 60 (> 60)
[2021-02-25] MEDS ORDERED: *HR* Enoxaparin 40 MG/0.4 ML SYRINGE SQ SCH (06:00)
[2021-02-25] MEDS: Vitamin B Complex/Vit C/Vit E 1 EACH TABLET PO SCH (07:16)
[2021-02-25] MEDS: Thiamine (B-1) 100 MG TABLET PO SCH (07:16)
[2021-02-25] MEDS: Folic Acid 1 MG TABLET PO SCH (07:16)
[2021-02-25 11:56] VITALS: BP 145/84; PULSE 65; TEMP 98.6; O2SAT 94
[2021-02-25] MEDS ORDERED: hydrOXYzine pamoate 25 MG CAPSULE PO PRN (14:53)
[2021-02-25] MEDS ORDERED: Melatonin 3 MG TABLET PO PRN (14:53)
[2021-02-25] MEDS ORDERED: Baclofen 10 MG TABLET PO PRN (14:53)
[2021-02-25] MEDS ORDERED: Gabapentin 400 MG CAPSULE PO SCH (15:00)
[2021-02-25] MEDS ORDERED: Topiramate 25 MG TABLET PO SCH (21:00)
[2021-02-26] MEDS ORDERED: FLUoxetine 20 MG CAPSULE PO SCH (09:00)
[2021-02-26] MEDS ORDERED: lisinopriL 20 MG TABLET PO SCH (09:00)
== END 2021-02-25 19:01 | disposition left against medical advice (07) | DRG 894 ==
LOC: 3NENU 14:03 → EMEROOARM 14:03 → 3NENU 19:51 → SUATTDRO 20:42
PROVIDERS: ADMIT Internal Medicine; ATTEND Internal Medicine